=== PATIENT | female | born 1985 | race Caucasian/White ===

== ENCOUNTER 2020-12-31 15:48 | Emergency (ER) | payer OTHER ==
[~2020-12-31] VITALS: Ht 165.1 cm; Wt 86.2 kg
--- NOTE | 2020-12-31 16:01 | NUR ---
BIBA LOW ABDOMINAL PAIN SINCE THIS MORNING,VAGINAL BLEEDING STARTED AFTER,LMP A MONTH AGO. RATES PAIN 10/10. ABDOMEN SOFT AND NON-DISTENDED. RESPIRATION REGULAR AND UNLABORED. WILL CONTINUE TO MONITOR THE PATIENT.
[2020-12-31] MEDS ORDERED: HYDROCODONE/APAP 5/325MG TABLET ONE (16:12)
--- NOTE | 2020-12-31 16:15 | NUR ---
TYPE INSPECTOR AT THE BEDSIDE
[2020-12-31] MEDS ORDERED: HYDROCODONE/APAP 5/325MG TABLET PO ONE (16:30)
[2020-12-31 16:56] LABS: BASOPHILS % (AUTO) 0.4 % (0.0-2.0); EOSINOPHILS % (AUTO) 0.6 % (0.0-6.0); HEMATOCRIT 44 % (33-45); HEMOGLOBIN 14.8 g/dL (11.5-14.8); LYMPHOCYTES # (AUTO) 1.4 K/uL (0.8-4.8); LYMPHOCYTES % (AUTO) 17.7 % (20.0-44.0); MEAN CORPUSCULAR HGB CONC 34 g/dl (31.0-36.0); MEAN CORPUSCULAR VOLUME 91 fL (82-100); MONOCYTES # (AUTO) 1.1 K/uL (0.1-1.30); MONOCYTES % (AUTO) 14.6 % (2.0-12.0); NEUTROPHILS # (AUTO) 5.2 K/uL (1.8-8.9); NEUTROPHILS % (AUTO) 66.7 % (43.0-81.0); PLATELET COUNT (AUTO) 290 K/uL (150-450); RED BLOOD CELL COUNT(AUTO) 4.81 MIL/uL (4.0-5.2); WHITE BLOOD COUNT (AUTO) 7.8 K/uL (4.3-11.0)
[2020-12-31] MEDS ORDERED: IV NS 0.9% 1,000 ML BAG IV ONE (17:00)
[2020-12-31 17:19] LABS: CALCIUM, SERUM 8.5 mg/dL (8.5-10.1); CREATININE 0.9 mg/dL (0.6-1.3); POTASSIUM 3.4 mmol/L (3.5-5.1)
[2020-12-31 17:26] LABS: ALBUMIN 3.5 g/dL (3.4-5.0); BILIRUBIN,DIRECT 0.1 mg/dL (0.0-0.2); BILIRUBIN,TOTAL 0.4 mg/dL (0.2-1.0); TOTAL PROTEIN, SERUM 7.8 g/dL (6.4-8.2)
[2020-12-31] MEDS ORDERED: IOHEXOL-300 100 ML VIAL IV ONE (18:05)
[2020-12-31] MEDS ORDERED: IV NS 0.9% 250 ML IV ONE (18:06)
[2020-12-31] MEDS ORDERED: ONDANSETRON HCL/PF 4 MG/2 ML VIAL ONE (18:07)
[2020-12-31] MEDS ORDERED: MORPHINE SULFATE INJ 4 MG/ML DISP.SYRIN ONE (18:08)
--- NOTE | 2020-12-31 18:19 | NUR ---
THE PATIENT IS TAKEN TO CT
--- NOTE | 2020-12-31 18:24 | NUR ---
URINE COLLECTED AND SENT TO THE LAB
--- NOTE | 2020-12-31 18:25 | NUR ---
COVID POSITIVE PER LAB. AWARE
[2020-12-31] MEDS ORDERED: MORPHINE SULFATE INJ 2 MG/ML DISP.SYRIN IV ONE (18:30)
[2020-12-31] MEDS ORDERED: ONDANSETRON HCL/PF 4 MG/2 ML VIAL IV ONE (18:30)
--- NOTE | 2020-12-31 18:35 | NUR ---
THE PATIENT IS BACK FROM CT
[2020-12-31 18:39] LABS: BILIRUBIN,URINE SMALL (NEGATIVE); COLOR,URINE YELLOW (YELLOW); LEUKOCYTE ESTERASE ,URINE Negative (NEGATIVE); NITRITE, URINE Negative (NEGATIVE); PH,URINE 6.5 (5.0-8.0); PROTEIN,URINE 30 mg/dl (NEGATIVE); UGLUCOSE Negative (NEGATIVE); UROBILINOGEN,URINE 0.2 EU/dL (0.2)
[2020-12-31 18:40] LABS: BACTERIA,URINE Rare /HPF (None Seen); RBC,URINE 21-50 /HPF (0-2); SQUAMOUS EPITHELIAL CELL,UR Few /HPF (None Seen); WBC,URINE NONE SEEN /HPF (0-3)
--- NOTE | 2020-12-31 19:16 | NUR ---
REPORT GIVEN TO NURSE CASTORENA FOR OLIVE
[2020-12-31] MEDS ORDERED: AZIT1PAC PO (20:25)
[2020-12-31] MEDS ORDERED: TRAM50TA2 PO (20:25)
[2020-12-31] MEDS ORDERED: PROM118S5 PO (20:25)
--- NOTE | 2020-12-31 20:44 | NUR ---
PT IS MEDICALLY STABLE FOR D/C. IV removed. Catheter intact and site benign. Pressure and 4x4 applied to site. No bleeding noted. Rx and Patient discharged to home in stable condition. Written and verbal after care instructions given. Patient verbalizes understanding of instruction.
[2020-12-31 20:45] VITALS: BP 122/88
== END 2020-12-31 20:56 | disposition home or self-care (01) ==
LOC: ER 16:13
DX: U07.1 COVID-19 (principal); N94.6 Dysmenorrhea, unspecified; R10.2 Pelvic and perineal pain; Z90.49 Acquired absence of other specified parts of digestive tract
CPT/HCPCS: 36415; 71045; 74177; 76856; 80048; 80076; 81001; 84702; 85025; 85730; 87426; 96361; 96374; 96375; 99285; C9803; J2270; J2405; J7030; J7050; Q9967